=== PATIENT | female | born 1985 | race Caucasian/White ===

== ENCOUNTER 2017-09-23 16:31 | Emergency (ER) | payer OTHER, MEDICAID ==
[2017-09-23 20:54] LABS: ADD MAN DIFF? NO
[2017-09-23 20:56] LABS: BASOPHILS % 0.6 % (0.0-2.0); EOSINOPHILS # 0.1 10^3/ul (0.0-0.5); EOSINOPHILS % 1.3 % (0.0-7.0); HEMATOCRIT 41.8 % (37.0-47.0); HEMOGLOBIN 13.7 g/dl (12.0-16.0); LYMPHOCYTES # 2.5 10^3/ul (0.8-2.9); LYMPHOCYTES % 36.6 % (15.0-51.0); MEAN CORPUSCULAR HEMOGLOBIN 27.8 pg (29.0-33.0); MEAN CORPUSCULAR HGB CONC 32.8 g/dl (32.0-37.0); MEAN CORPUSCULAR VOLUME 84.8 fl (82.0-101.0); MEAN PLATELET VOLUME 9.5 fl (7.4-10.4); MONOCYTE # 0.4 10^3/ul (0.3-0.9); MONOCYTES % 5.5 % (0.0-11.0); NEUTROPHIL # 3.9 10^3/ul (1.6-7.5); NEUTROPHILS % 55.9 % (39.0-77.0); PLATELET COUNT 299 10^3/UL (140-415); RED BLOOD COUNT 4.93 10^6/ul (4.20-5.40); RED CELL DISTRIBUTION WIDTH 12.9 % (11.5-14.5)
[2017-09-23 20:56] LABS: WHITE BLOOD COUNT 6.9 10^3/ul (4.8-10.8)
[2017-09-23] MEDS: KETOROLAC 30 MG INJ IM (20:56)
[2017-09-23 21:16] LABS: ALANINE AMINOTRANSFERASE 28 IU/L (13-69); ALBUMIN/GLOBULIN RATIO 1.35; ALKALINE PHOSPHATASE 77 IU/L (42-121); ANION GAP 18 (8-16); ASPARTATE AMINO TRANSFERASE 25 IU/L (15-46); BILIRUBIN,INDIRECT 0.3 mg/dl (0-1.1); BILIRUBIN,TOTAL 0.3 mg/dl (0.2-1.3); BLOOD UREA NITROGEN 11 mg/dl (7-20); CALCIUM 9.8 mg/dl (8.4-10.2); CARBON DIOXIDE 28 mmol/L (21-31); CHLORIDE 103 mmol/L (97-110); CREATININE 0.54 mg/dl (0.44-1.00); GLUCOSE 85 mg/dl (70-220); POTASSIUM 3.4 mmol/L (3.5-5.1); SODIUM 146 mmol/L (135-144); TOTAL PROTEIN 8.7 g/dl (6.1-8.1)
[2017-09-23 21:41] LABS: ADD UMIC NO; UR ASCORBIC ACID 40 mg/dL (NEGATIVE); UR BILIRUBIN (Dip) NEGATIVE (NEGATIVE); UR BLOOD (Dip) NEGATIVE (NEGATIVE); UR CLARITY SLIGHTLY CLOUDY (CLEAR); UR COLOR YELLOW (YELLOW); UR GLUCOSE (Dip) NEGATIVE (NEGATIVE); UR KETONES (Dip) NEGATIVE (NEGATIVE); UR LEUKOCYTE ESTERASE (Dip) NEGATIVE Leu/ul (NEGATIVE); UR MUCUS MANY /HPF (NONE SEEN); UR NITRITE (Dip) NEGATIVE (NEGATIVE); UR RBC 1 /HPF (0-5); UR SPECIFIC GRAVITY (Dip) 1.025 (1.003-1.030); UR SQUAMOUS EPITHELIAL CELL FEW /HPF (FEW); UR TOTAL PROTEIN (Dip) NEGATIVE (NEGATIVE); UR UROBILINOGEN (Dip) NEGATIVE (NEGATIVE); UR WBC 2 /HPF (0-5)
== END 2017-09-23 21:53 | disposition home or self-care (01) ==
LOC: FTE 21:53
DX: M25.511 Pain in right shoulder (principal)
CPT/HCPCS: 71045; 80053; 81001; 81003; 81025; 85025; 96372; 99284-25

== ENCOUNTER 2018-09-23 11:37 | Emergency (ER) | payer MEDICAID, OTHER ==
[2018-09-23] MEDS: IBUPROFEN 200 MG TAB PO (13:05)
== END 2018-09-23 16:40 | disposition home or self-care (01) ==
LOC: FTE 11:37
DX: N64.4 Mastodynia (principal)
CPT/HCPCS: 76642; 99284-25

== ENCOUNTER 2019-03-01 23:22 | Emergency (ER) | payer OTHER, MEDICAID ==
[2019-03-02 00:24] LABS: URINE BLOOD (Dip) POC Negative (NEGATIVE); URINE GLUCOSE (Dip) POC Negative (NEGATIVE); URINE KETONES (Dip) POC Negative (NEGATIVE); URINE LEUKOCYTE EST (Dip) POC 1+ (NEGATIVE); URINE NITRITE (Dip) POC Negative (NEGATIVE); URINE TOTAL PROTEIN POC Negative (NEGATIVE)
[2019-03-02] MEDS: IBUPROFEN 600 MG TAB PO (00:24)
[2019-03-02] MEDS: ACETAMINOPHEN 500 MG TAB PO (00:56)
== END 2019-03-02 02:07 | disposition home or self-care (01) ==
LOC: FTE 23:22
DX: R10.2 Pelvic and perineal pain (principal); N39.0 Urinary tract infection, site not specified
CPT/HCPCS: 76856; 81003; 81025; 99284-25